=== PATIENT | male | born 1960 | race Caucasian/White ===

== ENCOUNTER 2020-02-09 07:42 | Day surgery (SDC) | payer MEDICARE, MEDICAID ==
[~2020-02-09] VITALS: Ht 172.7 cm; Wt 69.4 kg
[2020-02-09] VITALS (10 sets, daily range): BP systolic 111–121; BP diastolic 62–92
[2020-02-09] MEDS ORDERED: LIDOcaine/PRILOcaine 5gm cream TP ONE (08:10)
[2020-02-09] MEDS ORDERED: normal saline 1,000 ML IV SCH (08:10)
[2020-02-09] MEDS ORDERED: diphenhydrAMINE 25mg capsule PO PRN (08:10)
[2020-02-09] MEDS ORDERED: LORazepam 0.5 MG tablet PO PRN (08:10)
[2020-02-09] MEDS ORDERED: PRED20TA PO (08:18)
[2020-02-09] MEDS ORDERED: HUM7525 SQ (08:18)
[2020-02-09] MEDS ORDERED: RANI-647 PO (08:18)
[2020-02-09] MEDS ORDERED: ASPI-1053 PO (08:18)
[2020-02-09] MEDS ORDERED: DIPH25CA46 PO (08:18)
[2020-02-09] MEDS ORDERED: SIMV-42 PO (08:18)
[2020-02-09] MEDS ORDERED: LISI-604 PO (08:18)
[2020-02-09] MEDS ORDERED: INSU100I31 (08:18)
[2020-02-09] MEDS ORDERED: LEVO50TA8 PO (08:18)
[2020-02-09 08:53] LABS: BASOPHILS # (AUTO) 0.1 X10'3 (0-0.2); BASOPHILS % (AUTO) 0.5 % (0-1); EOSINOPHILS # (AUTO) 0.1 X10'3 (0-0.9); EOSINOPHILS % (AUTO) 0.6 % (0-6); HEMOGLOBIN 13.1 g/dl (14.0-17.9); LYMPHOCYTES # (AUTO) 1.4 X10'3 (1.1-4.8); LYMPHOCYTES % (AUTO) 11.9 % (21-51); MEAN CORPUSCULAR HEMOGLOBIN 32.1 PG (27.0-31.0); MEAN CORPUSCULAR HGB CONC 33.7 g/dL (33.0-36.5); MEAN CORPUSCULAR VOLUME 95.2 FL (78-98); MEAN PLATELET VOLUME 7.9 FL (7.4-10.4); MONOCYTES % (AUTO) 8.7 % (2-12); NEUTROPHILS # (AUTO) 8.9 X10'3 (1.8-7.7); NEUTROPHILS % (AUTO) 78.3 % (42-75); PLATELET COUNT 313 X10'3 (140-440); RED CELL DISTRIBUTION WIDTH 13.5 % (11.5-14.5); WHITE BLOOD COUNT 11.4 X10'3 (4.5-11.0)
[2020-02-09 09:03] LABS: PARTIAL THROMBOPLASTIN TIME 24 SECONDS (22-32)
[2020-02-09 09:10] LABS: ALBUMIN 3.6 G/DL (3.4-5.0); ANION GAP 9 (8-16); BLOOD UREA NITROGEN 30 MG/DL (7-18); BUN/CREATININE RATIO 22.1 (5.4-32.0); CALCIUM 9.8 MG/DL (8.5-10.1); CHLORIDE 108 MMOL/L (99-107); CREATININE 1.36 MG/DL (0.60-1.10); GLUCOSE 117 MG/DL (70-104); POTASSIUM 3.9 MMOL/L (3.5-5.1); SODIUM 142 MMOL/L (135-145); TOTAL CARBON DIOXIDE 24.7 MMOL/L (24-32); eGFR 54 ML/MIN
[2020-02-09] MEDS ORDERED: verapamil 2.5 mg/ml inj IV ONE (10:48)
[2020-02-09] MEDS ORDERED: nitroGLYCERIN-Tridil 50MG/D5W 250 ML IV ONE (10:48)
[2020-02-09] MEDS ORDERED: midazolam 2 mg/2 ml injection ONE (10:49)
[2020-02-09] MEDS ORDERED: fentaNYL/PF 50MCG/1 ML 2ML syringe ONE (10:49)
[2020-02-09] MEDS ORDERED: iohexol 350MG/ML 100ml bottle IV ONE (10:49)
[2020-02-09] MEDS ORDERED: heparin 1,000unit/ml 10ml vial 10 ML ONE (10:49)
[2020-02-09] MEDS ORDERED: LIDOcaine 1% (10mg/ml)w/preservative injection 20ml MDV ONE (10:49)
[2020-02-09] MEDS ORDERED: OXAZEpam 15mg capsule PO PRN (12:10)
[2020-02-09] MEDS ORDERED: nitroGLYCERIN 0.4mg SUBLingual tab SL PRN (12:10)
[2020-02-09] MEDS ORDERED: normal saline 1000ml 1,000 ML IV SCH (12:10)
[2020-02-09] MEDS ORDERED: HYDROcodone/acetaminophen 10/325mg tab PO PRN (12:10)
[2020-02-09] MEDS ORDERED: ondansetron/PF 4mg/2ml inj IV PRN (12:10)
[2020-02-09] MEDS ORDERED: HYDROcodone/acetaminophen 5mg/325mg tablet PO PRN (12:10)
[2020-02-09] MEDS ORDERED: proCHLORperazine 10 MG/2 ml inj IV PRN (12:10)
== END 2020-02-09 16:00 | disposition home or self-care (01) ==
LOC: SSTAY O 07:42 → MED 3N 07:52 → SSTAY O 16:00
PROVIDERS: ATTEND Internal Medicine Interventional Cardiology
DX: R94.39 Abnormal result of other cardiovascular function study (principal); I25.118 Atherosclerotic heart disease of native coronary artery with other forms of angina pectoris; E10.22 Type 1 diabetes mellitus with diabetic chronic kidney disease; I12.9 Hypertensive chronic kidney disease with stage 1 through stage 4 chronic kidney disease, or unspecified chronic kidney disease; N18.9 Chronic kidney disease, unspecified; E10.69 Type 1 diabetes mellitus with other specified complication; E78.49 Other hyperlipidemia; E03.9 Hypothyroidism, unspecified; I65.23 Occlusion and stenosis of bilateral carotid arteries; Z87.891 Personal history of nicotine dependence; Z79.899 Other long term (current) drug therapy; Z79.82 Long term (current) use of aspirin; Z88.8 Allergy status to other drugs, medicaments and biological substances; Z98.890 Other specified postprocedural states; Z83.3 Family history of diabetes mellitus
CPT/HCPCS: 36415; 80048; 82948; 85025; 85610; 85730; 93005; 93458; 93880; 93970; 94010; 99152; 99153; C1769; C1894; J1644; J2001; J2250; J3010; J7030; Q0163; Q9967; A4620; A5120; J3490